=== PATIENT | male | born 1985 | race Caucasian/White ===

== ENCOUNTER → 2020-12-16 | Outpatient (CLI) | payer MEDICARE, OTHER | LOC: OPSV 07:37 | DX: M06.9 Rheumatoid arthritis, unspecified (principal) | CPT/HCPCS: 96365; 96366; 96375; J1720; J7050; Q5103 ==

== ENCOUNTER → 2020-12-30 | Outpatient (CLI) | payer MEDICARE, OTHER | LOC: OPSV 07:53 | DX: M06.9 Rheumatoid arthritis, unspecified (principal) | CPT/HCPCS: 96365; 96366; 96375; J1720; J7050; Q5103 ==

== ENCOUNTER → 2021-02-03 | Outpatient (CLI) | payer MEDICARE, OTHER | LOC: OPSV 08:00 | DX: M06.9 Rheumatoid arthritis, unspecified (principal) | CPT/HCPCS: 96365; 96366; 96375; J1720; J7050; Q5103 ==

== ENCOUNTER → 2021-03-31 | Outpatient (CLI) | payer MEDICARE, OTHER ==
[2021-03-31 09:36] LABS: HEMOGLOBIN 14.3 gm/dl (14.0-17.5); RED BLOOD COUNT 4.63 M/UL (4.20-5.50); WHITE BLOOD COUNT 5.4 K/UL (4.5-11.0)
[2021-03-31 09:53] LABS: BUN/CREATININE RATIO 19 (0-10)
== END ==
LOC: OPSV 07:17
PROVIDERS: Internal Medicine
DX: M05.79 Rheumatoid arthritis with rheumatoid factor of multiple sites without organ or systems involvement (principal); Z79.899 Other long term (current) drug therapy
CPT/HCPCS: 80053; 85025; 85652; 86140; 96365; 96366; 96375; J1720; J7050; Q5103